=== PATIENT | male | born 1980 | race Caucasian/White ===

== ENCOUNTER 2022-02-26 08:47 | Emergency (ER) | payer OTHER, SELFPAY ==
--- NOTE | ~2022-02-26 | CT_ITS ---
EXAMINATION: CT HEAD WITHOUT CONTRAST CLINICAL INFORMATION: History of fall. Headache. COMPARISON: None TECHNIQUE: Contiguous axial imaging was performed from the skull base to vertex without intravenous administration of contrast. This CT examination was performed using dose optimization techniques as appropriate, variously including the following: *Automated exposure control *Adjustment of mA and/or kV according to patient size (this includes techniques or standardized protocols for targeted exams where dose is matched to indication/reason for exam; i.e. 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 Please correlate clinically. There are no prior studies available for comparison. Otherwise, the remainder of the brain parenchyma, ventricles, cisterns and sulci appear unremarkable. Specifically, no evidence of intra-axial mass, mass effect, extra-axial fluid collection, midline shift, acute intraparenchymal hemorrhage and/or acute infarction present. Both orbital globes, extraocular muscles, optic nerves appear bilaterally symmetric and are unremarkable. The bilateral mastoid air cells appear unremarkable. Mild mucoperiosteal thickening of bilateral ethmoidal air cells. Incidental note is made of asymmetric soft tissue fullness within the nasopharynx at midline and to the right site of the midline (1:2), may represent asymmetric enlarged lymphoid tissue however, possibility of a mass in this region cannot be excluded. CT/CT head/brain wo IV con IMPRESSION: 1. 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 Please correlate clinically. There are no prior studies available for comparison. 2. No CT evidence of any acute intracranial pathology. 3. Mild mucoperiosteal thickening of bilateral ethmoidal air cells. 4. Asymmetric soft tissue fullness within the nasopharynx at midline and to the right of the midline may represent asymmetric enlarged lymphoid tissue however, possibility of a mass in this region is not excluded. Direct visualization (nonemergent) may be considered for further clarification.
--- NOTE | ~2022-02-26 | XR_ITS ---
EXAMINATION: XR CHEST CLINICAL INFORMATION: Syncope. COMPARISON: None TECHNIQUE: Frontal view of the chest was obtained. FINDINGS: No significant abnormality is noted involving the heart, lungs, mediastinum, bony thorax or soft tissues. XR/XR chest 1V IMPRESSION: Unremarkable examination.
--- NOTE | ~2022-02-26 | CT_ITS ---
EXAMINATION: CT SOFT TISSUE NECK WITH CONTRAST CLINICAL INFORMATION: Soft tissue fullness nasopharynx. Assess for mass. COMPARISON: CT scan of the head obtained earlier on 02/26/2022. TECHNIQUE: Following the intravenous administration of 60 mL of Omnipaque 350 intravenous contrast, helical imaging was performed in the axial plane with generation of coronal and sagittal reformatted images. This CT examination was performed using dose optimization techniques as appropriate, variously including the following: *Automated exposure control *Adjustment of mA and/or kV according to patient size (this includes techniques or standardized protocols for targeted exams where dose is matched to indication/reason for exam; i.e. extremities or head) *Use of iterative reconstruction technique DLP: 692 mGy-cm FINDINGS: There is no cervical lymphadenopathy. There are small lymph nodes at multiple levels in the neck bilaterally measuring up to 1.2 cm. The parotid glands are homogeneous in attenuation. The submandibular glands are normal. There is mild relatively symmetrical fullness of the nasopharyngeal soft tissues, but no discrete masses are demonstrated, and these changes may be reactive. No pathologic enhancement is seen within the oral cavity or pharyngeal mucosal space. The laryngeal structures are normal. The parapharyngeal fat is preserved. The carotid sheath vasculature opacifies normally. No extramucosal soft tissue mass or fluid collection is seen. No retropharyngeal fluid collection is seen. The thyroid gland is normal. The superior mediastinum is unremarkable. The lung apices are clear. The mastoid air cells are well-aerated. There is mild mucosal thickening in the bilateral ethmoid and left frontal sinuses. There are small retention cysts in the bilateral maxillary sinuses. The temporomandibular joints are normal. No periapical disease is identified. There is mild narrowing of intervertebral disc height with degenerative endplate contour changes at C4-C5 with narrowing of the bilateral neural foramina at this level. Volume loss in the left temporal and frontal regions is better demonstrated on the CT scan of the head. CT/CT soft tissue neck w IV con IMPRESSION: 1. There is mild fullness of the nasopharyngeal soft tissues and there are small lymph nodes at multiple levels in the neck bilaterally. These findings are nonspecific, but are likely reactive. No masses are demonstrated in the neck.
[2022-02-26 09:02] VITALS: BP 115/62; PULSE 68; RESP 17; TEMP 36; O2SAT 98; BMI 27.0
--- NOTE | 2022-02-26 09:12 | ECG_ITS ---
Test Reason : syncope Blood Pressure : / mmHG Vent. Rate : 068 BPM Atrial Rate : 068 BPM P-R Int : 154 ms QRS Dur : 088 ms QT Int : 370 ms P-R-T Axes : 058 086 055 degrees QTc Int : 393 ms Normal sinus rhythm with sinus arrhythmia Normal ECG No previous ECGs available Referred By: Generic ED Physician Electronically Signed By:ELENITA BERNARDO
[2022-02-26 09:43] LABS: MANUAL DIFF FLAG NO
[2022-02-26 09:54] LABS: Basophils Percent Auto 0.4 % (0-2); Eosinophils Absolute Auto 0.1 X10*3/uL (0.0-0.4); Eosinophils Percent Auto 1.1 % (0-4); Hematocrit 47.5 % (42.0-52.0); Hemoglobin 15.7 g/dl (14.0-18.0); Imm Gran Abs Auto 0.05 X10*3/uL (0.00-0.03); Imm Gran Pct Auto 0.5 % (0.0-0.4); Lymphocytes Absolute Auto 1.4 X10*3/uL (1.2-4.9); Lymphocytes Percent Auto 14.8 % (20-40); Mean Corpuscular HGB Conc 33.1 g/dl (31.0-36.0); Mean Corpuscular Volume 84.8 fL (80.0-98.0); Mean Platelet Volume 9.4 fL (9.4-12.4); Monocytes Absolute Auto 0.4 X10*3/uL (0.1-1.2); Monocytes Percent Auto 4.5 % (2-11); Neutrophils Absolute Auto 7.6 x10*3/uL (2.0-8.3); Neutrophils Percent Auto 78.7 % (45-73); Platelet Count 240 X10*3/uL (160-400); White Blood Count 9.7 X10*3/uL (4.8-10.8)
--- NOTE | 2022-02-26 09:54 | ED.GENADULT ---
HPI - General Adult General Chief complaint: Syncope Stated complaint: fainted in shower Time Seen by Provider: 02/26/22 09:53 History of Present Illness HPI narrative: Patient complains of a fainting episode which happened this morning as he was in the shower, he was in the shower standing, he started to feel dizzy and lightheaded and then his family found him fainted to the floor, he thinks he did Bang the back of his head as there is a bump on the back of his head, he did return to consciousness quickly and was fully alert, not postictal. He had no palpitations no chest pain no shortness of breath no heaviness in the chest no prior symptoms, he has no symptoms with exertion and before this episode felt in his normal state of health Related Data Allergies Allergy/AdvReac Type Severity Reaction Status Date / Time No Known Allergies Allergy Verified 02/26/22 10:06 Review of Systems Review of Systems: Positive for syncopal episode Negatives are no headache no vision changes no nausea or vomiting no neck pain no numbness weakness or tingling no chest pain no shortness of breath no palpitations no exertional symptoms no diaphoresis no abdominal pain no nausea vomiting or diarrhea, no dysuria no frequency no incontinence, no extremity pains or swelling no laceration Yes all other systems are reviewed and are negative PMFSH Past Medical History Source: nursing notes reviewed Social History Social History Advance Directives: No Advance Directives Information Provided: No Physical Exam ED Vital Signs: Vital Signs - 24 hr 02/26/22 09:02 02/26/22 10:19 02/26/22 11:22 Temperature 96.8 F 97.9 F Pulse Rate 68 60 59 Respiratory Rate 17 12 Blood Pressure 115/62 126/59 L 121/64 Pulse Oximetry 98 99 Oxygen Delivery Method Room Air Room Air 02/26/22 13:31 Temperature 98.1 F Pulse Rate 58 Respiratory Rate 15 Blood Pressure 140/79 H Pulse Oximetry 100 Oxygen Delivery Method Room Air BMI result Body Mass Index 27.0 General appearance is comfortable relaxed no acute distress The ears are clear and normal in appearance Tympanic membranes easily visualized The scalp did have of parietal small hematoma, but no deformities no lacerations No raccoon eyes no Carbajal signs The facial exam there is no tenderness to the bones of the face no visible signs of trauma The neck is supple and nontender Chest is clear to auscultation bilateral, no chest wall tenderness Heart no murmur Abdomen soft nontender Extremities full range of motion x4 Skin no lacerations Normal gait and balance are normal, interaction both comprehension expression are normal, cranial nerves 2-12 intact as tested, motor 5/5 x4, symmetrical music ministries director strength The sensation is intact and symmetrical in bilateral extremities Cerebellar exam is normal Course Course Course Narrative: EKG was a normal sinus rhythm with a rate of 68, normal intervals normal QT, no acute ST changes no acute ischemic changes Head CT did not show any acute traumatic injury, but it did show incidental finding of asymmetric to soft tissue fullness in the nasopharynx, etiology unclear and mass could not be ruled out Patient has had no symptoms in this area but as he has no doctor and no way to follow-up for further imaging of this questionable area a soft tissue neck CT was done with no sign of any malignant mass, cause of the mild fullness of the nasopharyngeal soft tissues is likely reactive lymph nodes There were no acute lab or abnormality Patient's symptoms likely are of vazo vagal episode as he had preceding symptoms of feeling mildly dizzy and lightheaded as he was standing, seizure very unlikely as he return to conscious quickly with no postictal period and had no abnormal movements observed by his family [place] back etiology very unlikely as he has had no preceding symptoms he had no chest pain no shortness of breath no palpitations, was not related to exertion, there was warning before he passed out He is advised to follow when he gets a primary care doctor possible referral to a manager business operations for a Holter monitor if needed but most important if he gets any other symptoms of dizziness weakness or fainting he is to return to the ER Medical Decision Making Lab Data Lab results reviewed: Yes I reviewed the patient's lab results. Result diagrams: 02/26/22 09:37 02/26/22 09:37 Labs: Lab Results 02/26/22 02/26/22 02/26/22 Range/Units 09:37 09:37 09:37 WBC 9.7 (4.8-10.8) X10*3/uL RBC 5.60 (4.60-5.80) X10*6/uL Hgb 15.7 (14.0-18.0) g/dl Hct 47.5 (42.0-52.0) % MCV 84.8 (80.0-98.0) fL MCH 28.0 (27.0-33.0) pg MCHC 33.1 (31.0-36.0) g/dl RDW 13.0 (11.0-16.0) % Plt Count 240 (160-400) X10*3/uL MPV 9.4 (9.4-12.4) fL Immature Gran % (Auto) 0.5 H (0.0-0.4) % Neut % (Auto) 78.7 H (45-73) % Lymph % (Auto) 14.8 L (20-40) % [place] % (Auto) 4.5 (2-11) % Eos % (Auto) 1.1 (0-4) % Baso % (Auto) 0.4 (0-2) % Lymph # (Auto) 1.4 (1.2-4.9) X10*3/uL [place] # (Auto) 0.4 (0.1-1.2) X10*3/uL Eos # (Auto) 0.1 (0.0-0.4) X10*3/uL Baso # (Auto) 0.0 (0.0-0.2) X10*3/uL Abs Immat Gran (auto) 0.05 H (0.00-0.03) X10*3/uL Absolute Neuts (auto) 7.6 (2.0-8.3) x10*3/uL Absolute Nucleated RBC 0.000 (0.0-0.012) X10*3/uL Nucleated RBC % (auto) 0.0 (0.0-0.2) /100WBC Sodium 141 (135-145) mmol/L Potassium 4.7 (3.3-5.1) mmol/L Chloride 106 (96-108) mmol/L Carbon Dioxide 25 (22-29) mmol/L Anion Gap 15 (12-20) BUN 17 H (9-16) mg/dL Creatinine 0.97 (0.5-1.4) mg/dL Estim Creat Clear Calc 97.9 Estimated GFR > 60 Random Glucose 101 (60-115) mg/dL Calcium 9.6 (8.4-10.2) mg/dL Troponin I High Sens < 3.5 (<3.5-35.0) ng/L Urine Color Urine Appearance Urine pH (5.0-9.0) Ur Specific [place] (1.005-1.025) Urine Protein (Neg-Trace) mg/dL Urine Glucose (UA) (Negative) mg/dL Urine Ketones (Negative) mg/dL Urine Blood (Negative) Urine Nitrite (Negative) Ur Leukocyte Esterase (Negative) Urine Opiates Screen (Not Detect) Urine Fentanyl Screen (Not Detect) Ur Barbiturates Screen (Not Detect) Ur Phencyclidine Scrn (Not Detect) Ur Amphetamines Screen (Not Detect) U Benzodiazepines Scrn (Not Detect) Urine Cocaine Screen (Not Detect) U Marijuana (THC) Screen (Not Detect) 02/26/22 02/26/22 Range/Units 11:00 11:00 WBC (4.8-10.8) X10*3/uL RBC (4.60-5.80) X10*6/uL Hgb (14.0-18.0) g/dl Hct (42.0-52.0) % MCV (80.0-98.0) fL MCH (27.0-33.0) pg MCHC (31.0-36.0) g/dl RDW (11.0-16.0) % Plt Count (160-400) X10*3/uL MPV (9.4-12.4) fL Immature Gran % (Auto) (0.0-0.4) % Neut % (Auto) (45-73) % Lymph % (Auto) (20-40) % [place] % (Auto) (2-11) % Eos % (Auto) (0-4) % Baso % (Auto) (0-2) % Lymph # (Auto) (1.2-4.9) X10*3/uL [place] # (Auto) (0.1-1.2) X10*3/uL Eos # (Auto) (0.0-0.4) X10*3/uL Baso # (Auto) (0.0-0.2) X10*3/uL Abs Immat Gran (auto) (0.00-0.03) X10*3/uL Absolute Neuts (auto) (2.0-8.3) x10*3/uL Absolute Nucleated RBC (0.0-0.012) X10*3/uL Nucleated RBC % (auto) (0.0-0.2) /100WBC Sodium (135-145) mmol/L Potassium (3.3-5.1) mmol/L Chloride (96-108) mmol/L Carbon Dioxide (22-29) mmol/L Anion Gap (12-20) BUN (9-16) mg/dL Creatinine (0.5-1.4) mg/dL Estim Creat Clear Calc Estimated GFR Random Glucose (60-115) mg/dL Calcium (8.4-10.2) mg/dL Troponin I High Sens (<3.5-35.0) ng/L Urine Color Yellow Urine Appearance Clear Urine pH 7.5 (5.0-9.0) Ur Specific [place] 1.025 (1.005-1.025) Urine Protein Negative (Neg-Trace) mg/dL Urine Glucose (UA) Negative (Negative) mg/dL Urine Ketones Negative (Negative) mg/dL Urine Blood Negative (Negative) Urine Nitrite Negative (Negative) Ur Leukocyte Esterase Negative (Negative) Urine Opiates Screen Not Detected (Not Detect) Urine Fentanyl Screen Not Detected (Not Detect) Ur Barbiturates Screen Not Detected (Not Detect) Ur Phencyclidine Scrn Not Detected (Not Detect) Ur Amphetamines Screen Not Detected (Not Detect) U Benzodiazepines Scrn Not Detected (Not Detect) Urine Cocaine Screen Not Detected (Not Detect) U Marijuana (THC) Screen POSITIVE H (Not Detect) Discharge Plan Discharge Clinical Impression: Vasovagal syncope, Lymphadenopathy, Contusion of scalp Patient Disposition: Home, Self-Care Additional Instructions: Your fainting episode where you felt dizzy and then passed out while standing in the shower is likely vasovagal syncope, meaning a drop in blood pressure while urine a standing position Best plan is make sure your very well hydrated If you feel any dizziness at all you need to lay down and put your head lower than the level of your legs to see if that resolves the symptoms As we are not sure this is the diagnosis, best plan is follow with primary doctor and if needed they would refer to cardiology and suggest that you wear a heart monitor for a period of time to see if there is any arrhythmia Return to the ER any time for fainting, feeling faint, chest pain palpitations any worse condition or any concerns We did a CT scan to evaluate a possible mass that was seen on the head CT, this showed some lymph nodes in the area but no mass no evidence of cancer Interventions: ED Discharge Assessment Last Done: 02/26/22 16:10 Discharge Date/Time: 02/26/22 16:16
[2022-02-26 10:00] LABS: Anion Gap 15 (12-20); Blood Urea Nitrogen 17 mg/dL (9-16); Calcium 9.6 mg/dL (8.4-10.2); Carbon Dioxide 25 mmol/L (22-29); Chloride 106 mmol/L (96-108); Creatinine Clr Calc Pharmacy 97.9; Estimated Glomerular Filt Rate > 60; Glucose Random 101 mg/dL (60-115); Potassium 4.7 mmol/L (3.3-5.1); Sodium 141 mmol/L (135-145)
[2022-02-26 10:09] LABS: Troponin-I High Sensitivity < 3.5 ng/L (<3.5-35.0)
[2022-02-26 10:19] VITALS: BP 126/59; PULSE 60
[2022-02-26] MEDS: 0.9 % Sodium Chloride 1,000 ML 999 ML IVCONT (10:22)
[2022-02-26 11:22] VITALS: BP 121/64; PULSE 59; RESP 12; TEMP 36.6; O2SAT 99
[2022-02-26 11:34] LABS: Amphetamine Screen Urine Not Detected (Not Detect); Barbiturates, Urine Not Detected (Not Detect); Benzodiazepines Screen Urine Not Detected (Not Detect); Cannabinoid Screen Urine POSITIVE (Not Detect); Cocaine Screen Urine Not Detected (Not Detect); Fentanyl, urine Not Detected (Not Detect); Opiate Screen Urine Not Detected (Not Detect); Phencyclidine Screen Urine Not Detected (Not Detect)
--- NOTE | 2022-02-26 13:19 | PC.NURSE ---
ct report is in [facility] and has been reviewed by pac cheri. cta neck ordered pt jeremi nsr on monitor with no complaints.
[2022-02-26 13:31] VITALS: BP 140/79; PULSE 58; RESP 15; TEMP 36.7; O2SAT 100
[2022-02-26] MEDS: diphenhydrAMINE HCL 50 MG/ML VIAL IVPUSH (13:58)
[2022-02-26] MEDS: predniSONE 20 MG TABLET 60 MG PO (13:58)
[2022-02-26 14:32] LABS: Appearance Urine Clear; Color Urine Yellow; Glucose Urine UA Negative (Negative); Leukocyte Esterase Urine Negative (Negative); Nitrite Urine Negative (Negative); PH 7.5 (5.0-9.0); Specific Gravity - Urine 1.025 (1.005-1.025); Urine Blood Negative (Negative); Urine Ketones Negative (Negative); Urine Protein Negative (Neg-Trace)
[2022-02-26] MEDS: iohexoL 350 MG/ML 100 ML INFUS..BTL IV (14:56)
== END 2022-02-26 16:16 | disposition home or self-care (01) ==
PROVIDERS: Physician Assistant Medical; Emergency Provider Student in an Organized Health Care Education/Training Program
DX: R55 Syncope and collapse (principal); R51.9 Headache, unspecified; M54.2 Cervicalgia; Z79.899 Other long term (current) drug therapy
CPT/HCPCS: 36415; 70450; 70491; 71045; 80048; 80307; 81003; 84484; 85025; 93005; 96374; 96375; 99284; J1200; Q9967